=== PATIENT | female | born 1950 | race Caucasian/White ===

== ENCOUNTER 2017-11-30 09:30 | Day surgery (SDC) | payer MEDICARE, BC ==
[2017-11-30] MEDS ORDERED: LIDOCAINE 2% MDV (20MG/ML) 20ML VIAL IV ONE (09:31)
[2017-11-30] MEDS ORDERED: MIDAZOLAM HCL 2MG/2ML VIAL IV ONE (09:31)
[2017-11-30] MEDS ORDERED: PROPOFOL 10 MG/ML VIAL IV ONE (09:31)
--- NOTE | 2017-12-02 17:40 | Operative Note ---
DATE OF SURGERY: 11/30/2017 OPERATION: COLONOSCOPY to the cecum. INDICATION: History of villous adenomas in the past. Her last examination was 6 years ago completed by my associate. She returns at this time for surveillance. ANESTHESIA: Intravenous sedation was administered by the department of anesthesiology and included Diprivan titrated to effect. PROCEDURE: Following informed consent from this alert individual including a discussion of the risks and benefits of the procedure and an opportunity for the patient to ask questions, the patient was in the left lateral decubitus position. A digital rectal examination was performed. No abnormalities were noted. Following this, the Olympus GEU201 video colonoscope was inserted into the rectum without resistance. The rectal mucosa had a normal appearance with normal folds and distensibility. The colonoscope was advanced up through the colon to the level of the cecum without much difficulty. Throughout the bowel the mucosa appeared normal, the folds were normal, and the bowel was fairly well distensible. The cecum was defined by noting the appendiceal orifice and ileocecal valve. The colon preparation overall was good. From the base of the cecum, the colonoscope was then withdrawn. No abnormalities were noted upon close inspection of the colon upon withdrawal. Retroflexion in the rectum was endoscopically unremarkable. The instrument was straightened and removed. The patient tolerated the procedure well and was returned to the recovery area in stable condition. IMPRESSION: Unremarkable colonoscopy to the cecum. RECOMMENDATIONS: The patient was advised to have surveillance colonoscopy in 5 years' time or sooner should problems arise. Followup will be with Jarvis Fall MD. As always, thank you for allowing me to participate in the care of your patient. CC: Jarvis Fall MD [facility]
== END 2017-11-30 11:42 | disposition home or self-care (01) ==
LOC: HOP 09:30
PROVIDERS: ATTEND Internal Medicine Gastroenterology
DX: Z12.11 Encounter for screening for malignant neoplasm of colon (principal); Z86.010 Personal history of colon polyps
CPT/HCPCS: 00812; G0121